=== PATIENT | female | born 1940 | race Caucasian/White ===

== ENCOUNTER 2021-06-09 11:38 | Emergency (ER) | payer MEDICARE ==
[~2021-06-09] VITALS: Ht 157.5 cm; Wt 104.8 kg
--- NOTE | 2021-06-09 11:42 | NUR ---
PT [id number] C/O HEADACHE, SORETHROAT AND SOB SINCE YESTERDAY. PT A/OX2/3. ON O2 VIA 2LPM N/C TOLERATING AT 94%. CONNECTED PT TO POX AND MONITOR. SAFETY MEASURES IN PLACE.
--- NOTE | 2021-06-09 11:59 | NUR ---
DRESS CUTTER AT PT'S BEDSIDE
[2021-06-09] MEDS ORDERED: GABA-532 PO (12:09)
[2021-06-09] MEDS ORDERED: LEVO50TA8 PO (12:09)
[2021-06-09] MEDS ORDERED: DULO60CA45 PO (12:09)
[2021-06-09] MEDS ORDERED: MYRBETRIQ ER PO (12:09)
[2021-06-09] MEDS ORDERED: SENN-261 PO (12:09)
[2021-06-09] MEDS ORDERED: ALBU2.5V38 IH (12:09)
[2021-06-09] MEDS ORDERED: BISA10SU11 RC (12:09)
[2021-06-09] MEDS ORDERED: ACET-868 PO (12:09)
[2021-06-09] MEDS ORDERED: CARB1CAP PO ×2 (12:09)
[2021-06-09] MEDS ORDERED: ATOR10TA PO (12:09)
[2021-06-09] MEDS ORDERED: PANT40TA2 PO (12:09)
[2021-06-09] MEDS ORDERED: HYDR-4303 PO (12:09)
[2021-06-09] MEDS ORDERED: DONE10TA44 PO (12:09)
--- NOTE | 2021-06-09 12:10 | NUR ---
IV LINE IS ESTABLISHED, BLOOD SPECIMEN COLLECTED AND SENT TO THE LAB. THE LINE IS SALINE LOCKED.
[2021-06-09 12:43] LABS: BASOPHILS % (AUTO) 0.3 % (0.0-2.0); EOSINOPHILS % (AUTO) 1.2 % (0.0-6.0); HEMATOCRIT 42 % (33-45); HEMOGLOBIN 13.9 g/dL (11.5-14.8); LYMPHOCYTES # (AUTO) 0.6 K/uL (0.8-4.8); LYMPHOCYTES % (AUTO) 8.4 % (20.0-44.0); MEAN CORPUSCULAR HGB CONC 34 g/dl (31.0-36.0); MEAN CORPUSCULAR VOLUME 99 fL (82-100); MONOCYTES # (AUTO) 0.7 K/uL (0.1-1.30); MONOCYTES % (AUTO) 10.9 % (2.0-12.0); NEUTROPHILS # (AUTO) 5.4 K/uL (1.8-8.9); NEUTROPHILS % (AUTO) 79.2 % (43.0-81.0); PLATELET COUNT (AUTO) 225 K/uL (150-450); RED BLOOD CELL COUNT(AUTO) 4.19 MIL/uL (4.0-5.2); WHITE BLOOD COUNT (AUTO) 6.8 K/uL (4.3-11.0)
--- NOTE | 2021-06-09 13:31 | NUR ---
COVID ANTIGEN SWAB COLLECTED AND SENT TO LAB
[2021-06-09 13:39] LABS: CALCIUM, SERUM 8.7 mg/dL (8.5-10.1); CARBON DIOXIDE 31 mmol/L (21-32); CHLORIDE 99 mmol/L (98-107); CREATININE 0.6 mg/dL (0.6-1.3); GLUCOSE 90 mg/dL (74-106); POTASSIUM 4.1 mmol/L (3.5-5.1); SODIUM SERUM 136 mmol/L (136-145); UREA NITROGEN, BLOOD 16 mg/dL (7-18)
[2021-06-09 13:42] LABS: ALANINE AMINOTRANSFERASE 8 U/L (12-78); ALBUMIN 2.9 g/dL (3.4-5.0); ALKALINE PHOSPHATASE 104 U/L (46-116); ASPARTATE AMINOTRANSFERASE 15 U/L (15-37); BILIRUBIN,DIRECT 0.2 mg/dL (0.0-0.2); BILIRUBIN,TOTAL 0.8 mg/dL (0.2-1.0); TOTAL PROTEIN, SERUM 6.8 g/dL (6.4-8.2)
[2021-06-09 14:16] LABS: BILIRUBIN,URINE Negative (NEGATIVE); COLOR,URINE YELLOW (YELLOW); LEUKOCYTE ESTERASE ,URINE Trace (NEGATIVE); NITRITE, URINE Negative (NEGATIVE); PROTEIN,URINE Negative (NEGATIVE); UGLUCOSE Negative (NEGATIVE)
[2021-06-09 14:27] LABS: BACTERIA,URINE Few /HPF (None Seen); SQUAMOUS EPITHELIAL CELL,UR Moderate /HPF (None Seen)
--- NOTE | 2021-06-09 15:09 | NUR ---
CALLED [facility] AND SET UP BLS TRANSPORT BACK HOME. ETA 1800
--- NOTE | 2021-06-09 16:22 | NUR ---
[facility]) [phone]
[2021-06-09] MEDS ORDERED: ONDANSETRON 4 MG TAB.RAPDIS ONE (16:55)
[2021-06-09] MEDS ORDERED: LORAZEPAM 0.5 MG TABLET ONE (16:55)
[2021-06-09] MEDS ORDERED: LORAZEPAM 0.5 MG TABLET PO ONE (17:00)
[2021-06-09] MEDS ORDERED: ONDANSETRON 4 MG TAB.RAPDIS SL ONE (17:00)
--- NOTE | 2021-06-09 18:40 | NUR ---
[facility] REPORT TO [facility]
--- NOTE | 2021-06-09 18:40 | NUR ---
PT D/C TO SNF PREVIOUS LIVING SITUATIONS [facility]IA [facility]
[2021-06-09 19:29] VITALS: BP 114/72
== END 2021-06-09 18:30 ==
LOC: ER 11:40
DX: U07.1 COVID-19 (principal); R94.31 Abnormal electrocardiogram [ECG] [EKG]; G20 Parkinson's disease; F02.80 Dementia in other diseases classified elsewhere, unspecified severity, without behavioral disturbance, psychotic disturbance, mood disturbance, and anxiety; K21.9 Gastro-esophageal reflux disease without esophagitis; E03.9 Hypothyroidism, unspecified; E78.5 Hyperlipidemia, unspecified; Z79.890 Hormone replacement therapy; Z79.899 Other long term (current) drug therapy
CPT/HCPCS: 36415; 71045; 80048; 80076; 81001; 83605; 84145; 84484; 85025; 85730; 87040 ×2; 87086; 87426; 93005; 99285; Q0162; C9803